=== PATIENT | female | born 1990 | race American Indian/Alaskan Native ===

== ENCOUNTER 2021-03-02 10:20 | Emergency (ER) | payer SELFPAY ==
[2021-03-02 10:27] VITALS: BP 138/84
[2021-03-02 11:01] LABS: Bilirubin,Urine NEG (Negative); Blood,Urine NEG (Negative); Color,Urine Straw (Yellow); Mucus,Urine FEW /HPF; Protein,Urine <15 mg/dL mg/dL (Negative); Urobilinogen,Urine < 2.0 mg/dL (<2.0)
--- NOTE | 2021-03-02 11:03 | Emergency Department Report ---
ED General Adult HPI - General Chief complaint: Nausea/Vomiting/Diarrhea Stated complaint: N/V ABD PAIN Time Seen by Provider: 03/02/21 10:35 Source: patient, EMS Mode of arrival: Stretcher Limitations: No Limitations - History of Present Illness Initial comments: Patient is 30 years old female 7 para 1 with 4 and one miscarriage. Patient presented to the ER complaining of nausea vomiting and lower abdominal pain. Patient stated that her pain is crampy and similar to miscarriage pain. Patient stated that last. Was mid January. Patient denied any chest pain or shortness of breath. - Related Data Allergies Allergy/AdvReac Type Severity Reaction Status Date / Time No Known Allergies Allergy Unverified 03/02/21 10:25 ED Review of Systems ROS: Stated complaint: N/V ABD PAIN Other details as noted in HPI Comment: All other systems reviewed and negative Constitutional: denies: chills, fever Respiratory: denies: cough, shortness of breath, SOB with exertion Cardiovascular: denies: chest pain, palpitations Gastrointestinal: abdominal pain, nausea, vomiting. denies: diarrhea, constipation, hematemesis Genitourinary: abnormal menses Musculoskeletal: denies: back pain Neurological: denies: headache, weakness, numbness, paresthesias, confusion ED Past Medical Hx - Past Medical History Previous Medical History?: No ED Physical Exam - General Limitations: No Limitations General appearance: alert, in no apparent distress - Head Head exam: Present: atraumatic, normocephalic, normal inspection - Eye Eye exam: Present: normal appearance, PERRL - ENT ENT exam: Present: normal exam, normal orophraynx, mucous membranes moist - Neck Neck exam: Present: normal inspection, full ROM. Absent: tenderness, meningismus - Respiratory Respiratory exam: Present: normal lung sounds bilaterally - Cardiovascular Cardiovascular Exam: Present: regular rate, normal rhythm, normal heart sounds - GI/Abdominal GI/Abdominal exam: Present: soft, normal bowel sounds. Absent: distended, tenderness, guarding, rebound, rigid, organomegaly, mass, bruit, pulsatile mass, hernia - Extremities Exam Extremities exam: Present: normal inspection, full ROM, normal capillary refill. Absent: tenderness - Back Exam Back exam: Present: normal inspection, full ROM. Absent: CVA tenderness (R), CVA tenderness (L) - Neurological Exam Neurological exam: Present: alert, oriented X3, CN II-XII intact - Psychiatric Psychiatric exam: Present: normal mood - Skin Skin exam: Present: warm, intact, normal color ED Course Vital Signs 03/02/21 03/02/21 10:25 10:55 Temperature 97.8 F Pulse Rate 88 Respiratory 16 18 Rate Blood Pressure 138/84 [Right] O2 Sat by Pulse 98 97 Oximetry ED Medical Decision Making - Lab Data Result diagrams: 03/02/21 11:09 03/02/21 11:09 - Radiology Data Radiology results: report reviewed - Medical Decision Making Patient is 30 years old female 7 para 1 with 4 and one miscarriage. Patient presented to the ER complaining of nausea vomiting and lower abdominal pain. Patient stated that her pain is crampy and similar to miscarriage pain. Patient stated that last. Was mid January. Patient denied any chest pain or shortness of breath. Patient remained stable in the ER with stable vital sign. Pelvic ultrasound showed 8 weeks intrauterine , viable. Patient advised to follow-up with her OB doctor in the next 2 to 3 days and to return to the ER Critical care attestation.: If time is entered above; I have spent that time in minutes in the direct care of this critically ill patient, excluding procedure time. ED Disposition Clinical Impression: Abdominal pain affecting Disposition: 01 HOME / SELF CARE / HOMELESS Is pt being admited?: No Condition: Stable Instructions: Abdominal Pain During , [id number] Referrals: BARI HAILE MD [Staff Physician] - 3-5 Days
[2021-03-02 11:26] LABS: Basophils % (Auto) 0.5 % (0.0-1.8); Eosinophils # (Auto) 0.1 K/mm3 (0.0-0.4); Eosinophils % (Auto) 0.9 % (0.0-4.3); Hematocrit 34.5 % (30.3-42.9); Hemoglobin 10.7 gm/dl (10.1-14.3); Lymphocytes # (Auto) 1.6 K/mm3 (1.2-5.4); Lymphocytes % (Auto) 23.7 % (13.4-35.0); Mean Corpuscular HGB Conc 31 % (30-34); Mean Corpuscular Volume 78 fl (79-97); Monocytes # (Auto) 0.5 K/mm3 (0.0-0.8); Monocytes % (Auto) 7.2 % (0.0-7.3); Platelet Count 215 K/mm3 (140-440); Red Blood Count 4.43 M/mm3 (3.65-5.03); Red Cell Distribution Width 17.8 % (13.2-15.2)
[2021-03-02 11:42] LABS: Blood Urea Nitrogen 6 mg/dL (7-17); Calcium 8.6 mg/dL (8.4-10.2); Hemolysis Index 0
[2021-03-02 11:46] LABS: BUN/Creatinine Ratio 10
--- NOTE | 2021-03-02 14:19 | Ultrasound Report ---
ULTRASOUND OBSTETRIC INDICATION / CLINICAL INFORMATION: , abdominal pain.. Clinical Gestational Age (GA) in weeks.days: 8 weeks and 1 day TECHNIQUE: Transabdominal. COMPARISON: None. FINDINGS: Single intrauterine gestational sac is identified. Yolk sac and embryo are identified. Gestational sa c measures 4.35 cm which would equate to an estimated gestational age of 9 weeks and 6 days. The [place] n-rump length measures 8.6 mm which would equate to an estimated gestational age of 6 weeks and 6 day s. Cardiac activity is detected at 152 bpm. Adjacent to the gestational sac is a 20 x 7 mm hypoechoic structure concerning for the presence of a small subchorionic hemorrhage. The right ovary measures 2.3 x 1.6 x 2 cm. The left ovary measures 2.8 x 2.6 x 2.3 cm. There is a there is a 1.2 x 1.1 x 1.1 cm cystic structure associated with the left ovary, possibly corpus luteum. Vascular flow is demonstrated to both ovaries. Trace free fluid is visualized. IMPRESSION: Single live intrauterine with estimated gestational age of 8 weeks and 0 days. Small subchorionic hemorrhage (20 x 7 mm) noted adjacent to gestational sac. Signer Name: Jagdish Calix MD Signed: 03/02/2021 2:14 PM Workstation Name: [id number]
== END 2021-03-02 16:18 | disposition home or self-care (01) ==
LOC: ED 10:20
DX: O26.891 Other specified pregnancy related conditions, first trimester (principal); R10.9 Unspecified abdominal pain; Z3A.08 8 weeks gestation of pregnancy
CPT/HCPCS: 36415; 76801; 76817; 80048; 81001; 84702; 85025; 99284